=== PATIENT | female | born 1985 | race Hispanic/Latino ===

== ENCOUNTER 2019-10-22 16:44 | Outpatient (CLI) | payer MEDICAID ==
[2019-10-22 17:39] LABS: Bacteria,Urine 1+ /HPF (Negative); Bilirubin,Urine NEG (Negative); Blood,Urine NEG (Negative); Color,Urine Straw (Yellow); Mucus,Urine FEW /HPF; Urobilinogen,Urine < 2.0 mg/dL (<2.0)
[2019-10-22 17:53] LABS: Hematocrit 32.5 % (30.3-42.9); Hemoglobin 10.6 gm/dl (10.1-14.3); Mean Corpuscular HGB Conc 33 % (30-34); Mean Corpuscular Volume 83 fl (79-97); Platelet Count 168 K/mm3 (140-440); Red Blood Count 3.92 M/mm3 (3.65-5.03); Red Cell Distribution Width 14.1 % (13.2-15.2)
[2019-10-22] MEDS ORDERED: LACTATED RINGERS 1,000 ML IV SCH (18:00)
[2019-10-22 18:15] LABS: Alanine Aminotransferase 19 units/L (7-56); Uric Acid 5.1 mg/dL (3.5-7.6)
[2019-10-22 18:58] VITALS: BP 127/59
== END 2019-10-22 19:15 | disposition home or self-care (01) ==
LOC: TRG 16:44
PROVIDERS: ATTEND Obstetrics & Gynecology
DX: O47.1 False labor at or after 37 completed weeks of gestation (principal); Z3A.32 32 weeks gestation of pregnancy
CPT/HCPCS: 36415; 59025; 81001; 82565; 83615; 84450; 84460; 84550; 85027